=== PATIENT | male | born 1995 | race Two or more races ===

== ENCOUNTER 2019-08-09 23:43 | Emergency (ER) | payer SELFPAY ==
--- NOTE | 2019-08-10 01:14 | RADIOLOGY REPORT (SQ) ---
CLINICAL HISTORY: LACERATION COMPARISON: None. TECHNIQUE: XR FINGERS 08/10/2019 12:00 AM CDT FINDINGS: There is no fracture. Joint spaces are preserved. Soft tissues are unremarkable. IMPRESSION: No acute osseous findings.
[2019-08-10] MEDS ORDERED: LIDOCAINE 1% INJ-PF (10 MG/ML) 30 ML SDV INJ ONE (01:56)
[2019-08-10] MEDS ORDERED: DIPH/PERTUSS(ACELL)/TETANUS VAC/PF 0.5 ML SYR (>=10YO) IM ONE (01:57)
[2019-08-10] MEDS ORDERED: HYDROCODONE/ACETAMINOPHEN 5-325 MG TABLET PO ONE (01:57)
--- NOTE | 2019-08-10 01:58 | ER Document Report ---
HPI - HPI Time Seen by Provider: 08/10/19 01:52 Pain Level: 2 Context: Patient is a 24-year-old male who presents emergency department with a chief complaint of a cut to his right pointer finger distal index finger. Patient states that around 3 PM yesterday, he got cut by a straight razor for hair. States that it continues to bleed. He does not know if he is up-to-date on his immunizations. Patient denies any diabetes. Patient is right-handed. - ROS Systems Reviewed and Negative: Yes All other systems reviewed and negative - REPRODUCTIVE Reproductive: DENIES: : - MUSCULOSKELETAL Musculoskeletal: REPORTS: Extremity pain - right ant. distal 2nd digit - DERM Skin Color: Normal Skin Problems: Laceration - right ant. distal 2nd digit Past Medical History - General Information source: Patient - Social History Smoking Status: Never Smoker Family History: Reviewed & Not Pertinent Patient has homicidal ideation: No Vertical Provider Document - CONSTITUTIONAL Agree With Documented VS: Yes Exam Limitations: No Limitations General Appearance: No Apparent Distress - INFECTION CONTROL TRAVEL OUTSIDE OF THE [place] IN LAST 30 DAYS: No - HEENT HEENT: Atraumatic, Normocephalic - NECK Neck: Normal Inspection - RESPIRATORY Respiratory: No Respiratory Distress - CARDIOVASCULAR Cardiovascular: Regular Rate Pulses: Normal: Radial - MUSCULOSKELETAL/EXTREMETIES Musculoskeletal/Extremeties: FROM - NEURO Level of Consciousness: Awake, Alert, Appropriate - DERM Integumentary: Laceration - distal anterior 2nd digit; see diagram on proceedure note Course - Re-evaluation Re-evalutation: 08/10/19 Differential diagnosis includes but is not limited to: Laceration, foreign body, arterial injury, nerve injury, fracture or tendon injury. Patient was able to flex and extend her digits against resistance distal to the laceration with no apparent tendon injury, CMS intact distal to the injury with no evidence of nerve damage, bleeding was well-controlled in the emergency department. X-ray was obtained to rule out foreign body, this was negative. Wound was repaired. See procedure note. Return precautions were given. Patient will be started on prophylactic Keflex. Follow-up precautions were given. Verbal discharge instructions were given to the patient. They verbalized understanding. They ar e stable for discharge. - Vital Signs Vital signs: Temp Pulse Resp BP Pulse Ox 99 F 08/09/19 23:44 Procedures - Laceration/Wound Repair Right Distal Finger 2nd digit Wound length (cm): 2 Wound's Depth, Shape: Superficial, Flap Laceration pre-procedure: Sterile PPE donned, Sterile drapes applied, Shur-Clens applied Anesthetic type: 1% Lidocaine Volume Anesthetic (mLs): 10 - digital block Wound explored: Clean, No foreign body removed Irrigated w/ Saline (mLs): 200 Wound Debrided: Minimal Wound Repaired With: Sutures Suture Size/Type: 5:0, Nylon Number of Sutures: 7 Post-procedure wound care: Sterile dressing applied Post-procedure NV exam normal: Yes Complications: No Hands front picture: 1 - Flap laceration Discharge - Discharge Clinical Impression: Finger laceration Qualifiers: Encounter type: initial encounter Finger: index finger Damage to nail status: without damage Foreign body presence: without foreign body Laterality: right Qualified Code(s): S61.210A - Laceration without foreign body of right index finger without damage to nail, initial encounter Condition: Stable Disposition: HOME, SELF-CARE Instructions: Prophylactic Antibiotic ([facility]), Soap Cleansing ([facility]), Tetanus Immunization Given ([facility]) Additional Instructions: Please return to your primary doctor, the ED, or an urgent care in 7 days for suture removal. Return immediately if you develop spreading redness around the wound, pus from the wound, worsening pain, or a fever of >100.4. Keep the area clean and dry. Wash gently with soap and water twice daily and cover with antibiotic ointment. Make sure you finish your antibiotics to prevent infection. Prescriptions: Cephalexin Monohydrate [Keflex 500 mg Capsule] 500 mg PO Q6H 5 Days #20 capsule
== END 2019-08-10 04:50 | disposition home or self-care (01) ==
LOC: ER 23:43
DX: S61.210A Laceration without foreign body of right index finger without damage to nail, initial encounter (principal); W27.8XXA Contact with other nonpowered hand tool, initial encounter; Z23 Encounter for immunization
CPT/HCPCS: 90471; 90715; 99282

== ENCOUNTER 2019-08-18 00:49 | Emergency (ER) | payer SELFPAY ==
--- NOTE | 2019-08-18 03:09 | ER Document Report ---
HPI - HPI Time Seen by Provider: 08/18/19 02:59 Pain Level: Denies Context: Patient is a 24-year-old male that comes emergency department for chief complaint of suture removal. He states that he accidentally cut his finger on a razor blade about 9 days ago, he had sutures placed here in his right index finger. Patient denies complications except around 1 day ago he accidentally struck his finger on the dashboard which caused some bruising near the laceration but he denies bleeding, discharge, swelling, or any other injuries. He denies any other complaints. - REPRODUCTIVE Reproductive: DENIES: : Past Medical History - General Information source: Patient - Social History Smoking Status: Never Smoker Frequency of alcohol use: None Drug Abuse: None Lives with: Family Family History: Reviewed & Not Pertinent Patient has homicidal ideation: No - Medical History Medical History: Negative Surgical Hx: Negative - Immunizations Immunizations up to date: Yes Hx Diphtheria, Pertussis, Tetanus Vaccination: Yes Vertical Provider Document - CONSTITUTIONAL General Appearance: WD/WN, No Apparent Distress - INFECTION CONTROL TRAVEL OUTSIDE OF THE [place] IN LAST 30 DAYS: No - HEENT HEENT: Atraumatic, Normocephalic - NECK Neck: Normal Inspection - RESPIRATORY Respiratory: Breath Sounds Normal, No Respiratory Distress - CARDIOVASCULAR Cardiovascular: Regular Rate, Regular Rhythm - GI/ABDOMEN Gastrointestinal: Abdomen Soft, Abdomen Non-Tender. negative: Abdomen Tender - BACK Back: Normal Inspection - MUSCULOSKELETAL/EXTREMETIES Musculoskeletal/Extremeties: MAEW, FROM, Tender - Patient has a small area of ecchymosis at the fingertip of the right index finger, just below this he has 7 sutures in a healed wound. There is no noted erythema, no severe tenderness, full range of motion, normal cap refill and sensation, no bleeding or discolored drainage. Unremarkable hand exam otherwise. - NEURO Level of Consciousness: Awake, Alert, Appropriate Motor/Sensory: No Motor Deficit, No Sensory Deficit - DERM Integumentary: Warm, Dry, No Rash Course - Re-evaluation Re-evalutation: Patient actually has a small hematoma under the finger pad of the right index finger just distal to where the wound was. The wound is unremarkable and healed, the sutures were removed without difficulty, bleeding, or drainage. Di scussed with patient. Patient does not have any noted bony tenderness, x-ray was deferred. Discussed care, follow-up, return precautions. Patient states understanding and agreement. - Vital Signs Vital signs: Temp Pulse Resp BP Pulse Ox 98.8 F 65 15 139/73 H 98 08/18/19 01:55 08/18/19 01:55 08/18/19 01:55 08/18/19 01:55 08/18/19 01:55 Discharge - Discharge Clinical Impression: Encounter for removal of sutures Condition: Stable Disposition: HOME, SELF-CARE Additional Instructions: The sutures have been removed, the wound has healed. Clean area gently with soap and water. I recommend that you protect the area still for the next several days because of the small hematoma that you have from injuring her finger. Call for primary care. Return if you worsen including severe worsening swelling or pain, developing or spreading redness, or any other concerning symptoms. Forms: Return to Work
[2019-08-18 03:39] VITALS: BP 128/70
== END 2019-08-18 03:38 | disposition home or self-care (01) ==
LOC: ER 00:49
DX: S61.210D Laceration without foreign body of right index finger without damage to nail, subsequent encounter (principal); W26.8XXD Contact with other sharp object(s), not elsewhere classified, subsequent encounter
CPT/HCPCS: 99281